=== PATIENT | male | born 1975 | race Hispanic/Latino ===

== ENCOUNTER 2017-05-27 09:22 | Emergency (ER) | payer SELFPAY ==
[2017-05-27 10:04] LABS: EOSINOPHILS % (AUTO) 1.2 % (0.0-8.0); HEMATOCRIT 47.1 % (42-54); LYMPHOCYTES % (AUTO) 23.8 % (21.0-51.0); MEAN CORPUSCULAR HEMOGLOBIN 34.2 pg (27.0-33.0); MEAN CORPUSCULAR HGB CONC 34.9 g/dL (32.0-36.0); MEAN CORPUSCULAR VOLUME 97.9 fL (79-99); MONOCYTES % (AUTO) 9.7 % (3.0-13.0); NEUTROPHILS % (AUTO) 64.3 % (40.0-77.0); PLATELET COUNT (AUTO) 353 K/uL (130-400); RED BLOOD CELL COUNT(AUTO) 4.82 MIL/uL (4.50-6.20); RED CELL DISTRIBUTION WIDTH 12.8 % (11.0-15.5); WHITE BLOOD COUNT (AUTO) 5.2 K/uL (4.8-10.8)
[2017-05-27 10:11] LABS: CREATININE 0.5 mg/dL (0.5-1.5); POTASSIUM 4.4 mmol/L (3.5-5.1)
[2017-05-27 10:18] LABS: APPEARANCE,URINE CLEAR (CLEAR); BILIRUBIN,URINE NEGATIVE (NEGATIVE); COLOR,URINE YELLOW (YELLOW); GLUCOSE, URINE (UA) NEGATIVE (NEGATIVE); KETONES,URINE 5 mg/dL (NEGATIVE); LEUKOCYTE ESTERASE ,URINE NEGATIVE (NEGATIVE); NITRATE,URINE NEGATIVE (NEGATIVE); OCCULT BLOOD,URINE NEGATIVE (NEGATIVE); PROTEIN,URINE 30 (NEGATIVE); UROBILINOGEN,URINE 0.2 mg/dL (0.2-1.0)
[2017-05-27 10:26] LABS: AMPHET/METH SCREEN,URINE NEGATIVE (NEGATIVE); BARBITURATE SCREEN, URINE NEGATIVE (NEGATIVE); BENZODIAZEPINES SCREEN,URINE NEGATIVE (NEGATIVE); CANNABINOID SCREEN,URINE NEGATIVE (NEGATIVE); COCAINE SCREEN,URINE NEGATIVE (NEGATIVE); OPIATE SCREEN,URINE NEGATIVE (NEGATIVE); PHENCYCLIDINE SCREEN,URINE NEGATIVE (NEGATIVE)
[2017-05-27 10:28] LABS: ALBUMIN 3.8 g/dL (3.5-5.0); BILIRUBIN,TOTAL 0.4 mg/dL (0.2-1.0); CREATINE KINASE MB 1.7 ng/mL (0.5-3.6); TOTAL PROTEIN, SERUM 7.8 g/dL (6.0-8.3)
[2017-05-27 10:30] LABS: BACTERIA,URINE Rare /HPF (None Seen); RBC,URINE 0-1 /HPF (0-1); SQUAMOUS EPITHELIAL CELL,UR Few /LPF (0-2); WBC,URINE None Seen /HPF (0-1)
[2017-05-27] MEDS ORDERED: HYDROXYZINE HCL 50 MG/ML VIAL IM SCH (10:30)
[2017-05-27 10:31] LABS: HYALINE CASTS, URINE 0-1 /LPF (0-1 /LPF)
== END 2017-05-27 12:49 | disposition home or self-care (01) ==
LOC: EDH 09:22
DX: F41.9 Anxiety disorder, unspecified (principal); R07.89 Other chest pain; I10 Essential (primary) hypertension; Z79.899 Other long term (current) drug therapy; Z88.6 Allergy status to analgesic agent
CPT/HCPCS: 36415; 71046; 80053; 80305; 81001; 82550; 82553; 84484 ×2; 85025; 93005 ×2; 96372; 99285; J3410

== ENCOUNTER 2017-06-02 10:32 | Inpatient (IN) | payer SELFPAY ==
[~2017-06-02] VITALS: Ht 172.7 cm; Wt 100.7 kg
[2017-06-02] VITALS (14 sets, daily range): BP systolic 140–179; BP diastolic 92–126
[2017-06-02] MEDS ORDERED: NITROGLYCERIN 0.4 MG SL TAB SL ONE (10:54)
[2017-06-02] MEDS ORDERED: ASPIRIN 325 MG TABLET ONE (10:54)
[2017-06-02] MEDS ORDERED: SODIUM CHLORIDE 0.9% 500ML 500 ML IV ONE (10:54)
[2017-06-02 11:11] LABS: BASOPHILS % (AUTO) 0.8 % (0.0-5.0); EOSINOPHILS % (AUTO) 1.1 % (0.0-8.0); LYMPHOCYTES % (AUTO) 26.9 % (21.0-51.0); MEAN CORPUSCULAR HEMOGLOBIN 35.4 pg (27.0-33.0); MEAN CORPUSCULAR HGB CONC 36.7 g/dL (32.0-36.0); MEAN CORPUSCULAR VOLUME 96.5 fL (79-99); NEUTROPHILS % (AUTO) 62.2 % (40.0-77.0); PLATELET COUNT (AUTO) 310 K/uL (130-400); RED BLOOD CELL COUNT(AUTO) 4.56 MIL/uL (4.50-6.20); RED CELL DISTRIBUTION WIDTH 12.5 % (11.0-15.5); WHITE BLOOD COUNT (AUTO) 5.3 K/uL (4.8-10.8)
[2017-06-02 11:45] LABS: CREATININE 0.6 mg/dL (0.5-1.5); POTASSIUM 3.9 mmol/L (3.5-5.1)
[2017-06-02 11:58] LABS: ALBUMIN 4.1 g/dL (3.5-5.0); BILIRUBIN,TOTAL 0.3 mg/dL (0.2-1.0); TOTAL PROTEIN, SERUM 8.2 g/dL (6.0-8.3)
[2017-06-02] MEDS ORDERED: DiphenhydrAMINE HCL 50 MG/ML VIAL ONE (12:06)
[2017-06-02] MEDS ORDERED: METOPROLOL TARTRATE 1 MG/ML 5ML VIAL IV ONE ×3 (12:07→14:03)
[2017-06-02 14:08] LABS: AMPHET/METH SCREEN,URINE NEGATIVE (NEGATIVE); BARBITURATE SCREEN, URINE NEGATIVE (NEGATIVE); BENZODIAZEPINES SCREEN,URINE NEGATIVE (NEGATIVE); CANNABINOID SCREEN,URINE NEGATIVE (NEGATIVE); COCAINE SCREEN,URINE NEGATIVE (NEGATIVE); OPIATE SCREEN,URINE NEGATIVE (NEGATIVE); PHENCYCLIDINE SCREEN,URINE NEGATIVE (NEGATIVE)
[2017-06-02] MEDS ORDERED: CLONIDINE HCL 0.1 MG TABLET ONE (14:15)
[2017-06-02] MEDS ORDERED: LORAZEPAM 2 MG/ML 1 ML VIAL ONE ×2 (14:16→17:24)
[2017-06-02] MEDS ORDERED: NICARDIPINE IN NACL, ISO-OSM 200 ML IV ONE ×2 (15:37→18:43)
[2017-06-02] MEDS ORDERED: NICARDIPINE HCL 100 MG in SODIUM CHLORIDE 0.9% 60 ML IV SCH (20:30)
[2017-06-02] MEDS ORDERED: NACL IV PRN (20:45)
[2017-06-02] MEDS ORDERED: NICARDIPINE IV PRN (20:45)
[2017-06-02] MEDS ORDERED: ISO OSM IV PRN (20:45)
[2017-06-02] MEDS ORDERED: METO100T14 PO (21:21)
[2017-06-02] MEDS ORDERED: LISI-613 PO (21:21)
[2017-06-02] MEDS ORDERED: CLONIDINE HCL 0.1 MG TABLET PO PRN (21:30)
[2017-06-02] MEDS ORDERED: ACETAMINOPHEN 325 MG TAB PO PRN (21:30)
[2017-06-02] MEDS: LISINOPRIL 10 MG TABLET PO SCH (22:18)
[2017-06-02] MEDS: METOPROLOL TARTRATE 50 MG TAB PO SCH (22:18)
[2017-06-03] VITALS (11 sets, daily range): BP systolic 110–163; BP diastolic 61–105
[2017-06-03] MEDS: LORAZEPAM 2 MG/ML 1 ML VIAL IVP PRN ×2 (03:46→08:28)
[2017-06-03] MEDS ORDERED: ONDANSETRON HCL 4 MG/2 ML VIAL IVP PRN (06:45)
[2017-06-03] MEDS ORDERED: ONDANSETRON HCL 4 MG/2 ML VIAL ONE (07:01)
[2017-06-03] MEDS: LISINOPRIL 10 MG TABLET PO SCH (08:27)
[2017-06-03] MEDS: METOPROLOL TARTRATE 50 MG TAB PO SCH (08:27)
[2017-06-03] MEDS ORDERED: ENOXAPARIN SODIUM 40 MG/0.4 ML SYRINGE SQ SCH (09:00)
[2017-06-03] MEDS ORDERED: PANTOPRAZOLE SODIUM 40 MG TABLET.DR PO SCH (09:00)
[2017-06-03 10:37] LABS: CREATINE KINASE MB 0.6 ng/mL (0.5-3.6); TROPONIN I 0.04 ng/mL (0.00-0.06)
[2017-06-03] MEDS ORDERED: NIFE30TA91 PO (10:50)
[2017-06-04] MEDS ORDERED: NIFEDIPINE ER 30 MG TAB PO SCH (09:00)
== END 2017-06-03 11:50 | disposition home or self-care (01) | DRG 305 ==
LOC: EDH 10:32 → EDHIP 10:33 → 2CH 19:45
PROVIDERS: ADMIT Family Medicine; ATTEND Family Medicine
DX: I16.1 Hypertensive emergency (principal); E66.9 Obesity, unspecified; F41.9 Anxiety disorder, unspecified; I10 Essential (primary) hypertension; Z68.33 Body mass index [BMI] 33.0-33.9, adult; Z88.8 Allergy status to other drugs, medicaments and biological substances
CPT/HCPCS: 36415; 70450; 80053; 80305; 82550; 82553; 83874; 84484; 85025; 93005; 99291; 99292; J1200; J1650; J2060; J2405; J3490; J7040

== ENCOUNTER 2018-02-08 13:03 | Emergency (ER) | payer OTHER ==
[~2018-02-08 13:03] MED LIST: LISI-613 PO; METO100T14 PO
[2018-02-08] MEDS ORDERED: MECLIZINE HCL 25 MG TABLET ONE (13:42)
[2018-02-08] MEDS ORDERED: ACETAMINOPHEN 325 MG TAB ONE (13:43)
[2018-02-08] MEDS ORDERED: METOPROLOL TARTRATE 25 MG TAB ONE (14:24)
== END 2018-02-08 14:39 | disposition home or self-care (01) ==
LOC: EDH 13:03
DX: I10 Essential (primary) hypertension (principal); Z88.5 Allergy status to narcotic agent
CPT/HCPCS: 93005

== ENCOUNTER 2018-08-25 08:20 | Emergency (ER) | payer OTHER ==
[2018-08-25] MEDS ORDERED: ASPIRIN 325 MG TABLET ONE (09:03)
[2018-08-25] MEDS ORDERED: FAMOTIDINE 20MG TAB 20 MG TAB ONE (09:03)
[2018-08-25 09:23] LABS: BASOPHILS % (AUTO) 0.7 % (0.0-5.0); EOSINOPHILS % (AUTO) 2.3 % (0.0-8.0); HEMATOCRIT 47.1 % (42-54); MEAN CORPUSCULAR HEMOGLOBIN 33.4 pg (27.0-33.0); MEAN CORPUSCULAR HGB CONC 34.2 g/dL (32.0-36.0); MEAN CORPUSCULAR VOLUME 97.8 fL (79-99); MONOCYTES % (AUTO) 11.2 % (3.0-13.0); NEUTROPHILS % (AUTO) 58.8 % (40.0-77.0); PLATELET COUNT (AUTO) 278 K/uL (130-400); RED BLOOD CELL COUNT(AUTO) 4.82 MIL/uL (4.50-6.20); RED CELL DISTRIBUTION WIDTH 12.9 % (11.0-15.5)
[2018-08-25 09:42] LABS: APPEARANCE,URINE Clear (CLEAR); BILIRUBIN,URINE Negative (NEGATIVE); COLOR,URINE Yellow (YELLOW); GLUCOSE, URINE (UA) Negative (NEGATIVE); KETONES,URINE Negative (NEGATIVE); LEUKOCYTE ESTERASE ,URINE Negative (NEGATIVE); NITRATE,URINE Negative (NEGATIVE); OCCULT BLOOD,URINE Negative (NEGATIVE); PROTEIN,URINE Negative (NEGATIVE)
[2018-08-25 09:50] LABS: AMPHET/METH SCREEN,URINE NEGATIVE (NEGATIVE); BARBITURATE SCREEN, URINE NEGATIVE (NEGATIVE); BENZODIAZEPINES SCREEN,URINE NEGATIVE (NEGATIVE); CANNABINOID SCREEN,URINE NEGATIVE (NEGATIVE); COCAINE SCREEN,URINE NEGATIVE (NEGATIVE); OPIATE SCREEN,URINE NEGATIVE (NEGATIVE); PHENCYCLIDINE SCREEN,URINE NEGATIVE (NEGATIVE)
[2018-08-25 10:02] LABS: CARBON DIOXIDE 24 mmol/L (21-32); CHLORIDE 103 mmol/L (101-111); CREATININE 0.6 mg/dL (0.5-1.5); GLOMERULAR FILTR. RATE CALC 159 mL/min (>60); GLUCOSE,RANDOM 107 mg/dL (70-105); POTASSIUM 4.9 mmol/L (3.5-5.1); SODIUM SERUM 137 mmol/L (136-145); UREA NITROGEN, BLOOD 11 mg/dL (7-18)
[2018-08-25 10:10] LABS: ALANINE AMINOTRANSFERASE 37 U/L (12-78); ALBUMIN 3.9 g/dL (3.5-5.0); ASPARTATE AMINOTRANSFERASE 12 U/L (10-37); BILIRUBIN,TOTAL 0.3 mg/dL (0.2-1.0); CREATINE KINASE, TOTAL 116 U/L (21-232); TOTAL PROTEIN, SERUM 7.8 g/dL (6.0-8.3)
[2018-08-25 10:25] LABS: ACETAMINOPHEN < 1 mcg/mL (10-29); ALCOHOL, BLOOD < 3 mg/dL (0-10); SALICYLATE < 2.8 mg/dL (2.8-20.0)
== END 2018-08-25 13:24 | disposition home or self-care (01) ==
LOC: EDH 08:20
DX: R07.89 Other chest pain (principal); F41.1 Generalized anxiety disorder; I10 Essential (primary) hypertension; R42 Dizziness and giddiness; R19.7 Diarrhea, unspecified; R10.13 Epigastric pain
CPT/HCPCS: 36415; 71045; 80053; 80305; 81003; 82550; 84484 ×2; 85025; 93005 ×2; 99285; G0480 ×2; G0481

== ENCOUNTER 2018-08-30 07:35 | Emergency (ER) | payer OTHER ==
[2018-08-30] MEDS ORDERED: MAG HYDROX/AL HYDROX/SIMETH ES 30 ML SUSP UDCUP ONE (08:33)
[2018-08-30] MEDS ORDERED: ONDANSETRON HCL 4 MG/2 ML VIAL ONE (08:33)
[2018-08-30] MEDS ORDERED: LIDOCAINE HCL 2% VISCOUS 15 ML UDCUP ONE (08:33)
[2018-08-30] MEDS ORDERED: LABETALOL 20 MG/4 ML DISP.SYRIN IV ONE (08:34)
[2018-08-30 08:36] LABS: BASOPHILS % (AUTO) 0.9 % (0.0-5.0); EOSINOPHILS % (AUTO) 2.7 % (0.0-8.0); HEMATOCRIT 48.5 % (42-54); LYMPHOCYTES % (AUTO) 17.7 % (21.0-51.0); MEAN CORPUSCULAR HEMOGLOBIN 33.2 pg (27.0-33.0); MEAN CORPUSCULAR HGB CONC 33.5 g/dL (32.0-36.0); MEAN CORPUSCULAR VOLUME 99.2 fL (79-99); MONOCYTES % (AUTO) 15.2 % (3.0-13.0); NEUTROPHILS % (AUTO) 63.5 % (40.0-77.0); NUCLEATED RED BLOOD CELLS 0.1 % (0.0-0.19); PLATELET COUNT (AUTO) 251 K/uL (130-400); RED BLOOD CELL COUNT(AUTO) 4.89 MIL/uL (4.50-6.20); RED CELL DISTRIBUTION WIDTH 13.2 % (11.0-15.5)
[2018-08-30 08:47] LABS: CREATININE 0.7 mg/dL (0.5-1.5); POTASSIUM 3.9 mmol/L (3.5-5.1)
[2018-08-30 08:51] LABS: ALBUMIN 3.7 g/dL (3.5-5.0); BILIRUBIN,TOTAL 0.4 mg/dL (0.2-1.0); TOTAL PROTEIN, SERUM 7.6 g/dL (6.0-8.3)
[2018-08-30] MEDS ORDERED: DiphenhydrAMINE HCL 50 MG/ML VIAL ONE (09:08)
[2018-08-30 09:37] LABS: BAND NEUTROPHILS % (MANUAL) 8 % (0-2); EOSINOPHILS % (MANUAL) 2 % (1-6); LYMPHOCYTES % (MANUAL) 13 % (22-44); MAN.DIFF COMMENT-IMPRESSION MANUAL DIFFERENTIAL; MONOCYTES % (MANUAL) 12 % (2-9); PLATELET MORPHOLOGY COMMENT ADEQUATE; REACTIVE LYMPHOCYTES 9 % (0-0); SEGMENTED NEUTROPHILS % 56 % (40-70)
[2018-08-30] MEDS ORDERED: LISINOPRIL 5 MG TABLET ONE (09:46)
== END 2018-08-30 10:47 | disposition home or self-care (01) ==
LOC: EDH 07:35
DX: K21.9 Gastro-esophageal reflux disease without esophagitis (principal); I10 Essential (primary) hypertension; F41.9 Anxiety disorder, unspecified; Z88.5 Allergy status to narcotic agent
CPT/HCPCS: 36415; 80053; 82550; 83690; 84484; 85025; 93005; 96372; 96374; 96375; 99285; J1200; J2405

== ENCOUNTER 2018-09-10 13:21 | Emergency (ER) | payer SELFPAY ==
[2018-09-10] MEDS ORDERED: HYDROXYZINE HCL 25 MG TABLET ONE (13:52)
== END 2018-09-10 14:05 | disposition home or self-care (01) ==
LOC: EDH 13:21
DX: F41.1 Generalized anxiety disorder (principal); I10 Essential (primary) hypertension; Z88.5 Allergy status to narcotic agent

== ENCOUNTER 2018-10-24 10:53 | Emergency (ER) | payer SELFPAY ==
[2018-10-24 11:19] LABS: EOSINOPHILS % (AUTO) 1.3 % (0.0-8.0); HEMATOCRIT 43.8 % (42-54); MEAN CORPUSCULAR HEMOGLOBIN 34.8 pg (27.0-33.0); MEAN CORPUSCULAR HGB CONC 35.3 g/dL (32.0-36.0); MEAN CORPUSCULAR VOLUME 98.5 fL (79-99); MONOCYTES % (AUTO) 13.4 % (3.0-13.0); NEUTROPHILS % (AUTO) 64.3 % (40.0-77.0); NUCLEATED RED BLOOD CELLS 0.2 % (0.0-0.19); PLATELET COUNT (AUTO) 271 K/uL (130-400); RED BLOOD CELL COUNT(AUTO) 4.45 MIL/uL (4.50-6.20); RED CELL DISTRIBUTION WIDTH 13.4 % (11.0-15.5); WHITE BLOOD COUNT (AUTO) 3.7 K/uL (4.8-10.8)
[2018-10-24] MEDS ORDERED: ACETAMINOPHEN EXTRA STRENGTH 500 MG TABLET ONE (11:21)
[2018-10-24 11:35] LABS: CARBON DIOXIDE 22 mmol/L (21-32); CHLORIDE 104 mmol/L (101-111); CREATININE 0.3 mg/dL (0.5-1.5); GLOMERULAR FILTR. RATE CALC 353 mL/min (>60); GLUCOSE,RANDOM 94 mg/dL (70-105); POTASSIUM 5.4 mmol/L (3.5-5.1); SODIUM SERUM 138 mmol/L (136-145); UREA NITROGEN, BLOOD 5 mg/dL (7-18)
[2018-10-24 11:37] LABS: ALANINE AMINOTRANSFERASE 96 U/L (12-78); ALBUMIN 3.9 g/dL (3.5-5.0); ASPARTATE AMINOTRANSFERASE 83 U/L (10-37); BILIRUBIN,DIRECT < 0.1 mg/dL (0.0-0.3); BILIRUBIN,TOTAL 0.6 mg/dL (0.2-1.0); CREATINE KINASE, TOTAL 262 U/L (21-232); LIPASE 242 U/L (114-286); TOTAL PROTEIN, SERUM 7.2 g/dL (6.0-8.3)
[2018-10-24 11:48] LABS: B-TYPE NATRIURETIC PEPTIDE < 5 pg/mL (0-100)
[2018-10-24] MEDS ORDERED: DiphenhydrAMINE HCL 50 MG/ML VIAL ONE (12:23)
[2018-10-24 14:04] LABS: APPEARANCE,URINE Cloudy (CLEAR); BILIRUBIN,URINE Negative (NEGATIVE); COLOR,URINE Yellow (YELLOW); GLUCOSE, URINE (UA) Negative (NEGATIVE); KETONES,URINE 15 mg/dL (NEGATIVE); LEUKOCYTE ESTERASE ,URINE Negative (NEGATIVE); NITRATE,URINE Negative (NEGATIVE); OCCULT BLOOD,URINE Negative (NEGATIVE); PROTEIN,URINE POS 1+ mg/dL (NEGATIVE)
[2018-10-24 14:05] LABS: AMPHET/METH SCREEN,URINE NEGATIVE (NEGATIVE); BARBITURATE SCREEN, URINE NEGATIVE (NEGATIVE); BENZODIAZEPINES SCREEN,URINE NEGATIVE (NEGATIVE); CANNABINOID SCREEN,URINE NEGATIVE (NEGATIVE); COCAINE SCREEN,URINE NEGATIVE (NEGATIVE); OPIATE SCREEN,URINE NEGATIVE (NEGATIVE); PHENCYCLIDINE SCREEN,URINE NEGATIVE (NEGATIVE)
[2018-10-24 14:09] LABS: BACTERIA,URINE Rare /HPF (None Seen); MUCUS,URINE Moderate LPF (None Seen); RBC,URINE 0-1 /HPF (0-1); SQUAMOUS EPITHELIAL CELL,UR Rare /HPF (0-2); WBC,URINE 0-1 /HPF (0-1)
[2018-10-24] MEDS ORDERED: LABETALOL HCL 5 MG/ML 20ML VIAL IV ONE (14:48)
[2018-10-24] MEDS ORDERED: NITROGLYCERIN 1GM/1 INCH PACKET TD ONE (16:00)
[2018-10-24] MEDS ORDERED: LORAZEPAM 2 MG/ML 1 ML VIAL ONE (16:40)
== END 2018-10-24 17:18 | disposition home or self-care (01) ==
LOC: EDH 10:53
DX: R07.89 Other chest pain (principal); I10 Essential (primary) hypertension; F41.9 Anxiety disorder, unspecified; F10.10 Alcohol abuse, uncomplicated; Z88.5 Allergy status to narcotic agent; Z87.891 Personal history of nicotine dependence
CPT/HCPCS: 36415; 71045; 80048; 80076; 80305; 81001; 82550; 83690; 83880; 84484 ×2; 85025; 93005 ×2; 96372; 96374; 96375; 99285; G0480; J1200; J2060; J3490

== ENCOUNTER 2019-02-11 18:03 | Emergency (ER) | payer OTHER ==
[2019-02-11 18:43] LABS: BASOPHILS % (AUTO) 0.6 % (0.0-5.0); EOSINOPHILS % (AUTO) 0.6 % (0.0-8.0); HEMATOCRIT 45.2 % (42-54); LYMPHOCYTES % (AUTO) 18.2 % (21.0-51.0); MEAN CORPUSCULAR HEMOGLOBIN 34.2 pg (27.0-33.0); MEAN CORPUSCULAR HGB CONC 34.8 g/dL (32.0-36.0); MEAN CORPUSCULAR VOLUME 98.2 fL (79-99); MONOCYTES % (AUTO) 7.2 % (3.0-13.0); NEUTROPHILS % (AUTO) 73.4 % (40.0-77.0); PLATELET COUNT (AUTO) 267 K/uL (130-400); RED BLOOD CELL COUNT(AUTO) 4.61 MIL/uL (4.50-6.20); RED CELL DISTRIBUTION WIDTH 12.9 % (11.0-15.5); WHITE BLOOD COUNT (AUTO) 8.2 K/uL (4.8-10.8)
[2019-02-11 18:56] LABS: CREATININE 0.6 mg/dL (0.5-1.5); PARTIAL THROMBOPLASTIN TIME 25.8 SEC (26.3-35.5); POTASSIUM 3.8 mmol/L (3.5-5.1); PROTHROMBIN TIME 10.5 SEC (9.6-11.6)
[2019-02-11] MEDS ORDERED: SODIUM CHLORIDE 0.9% 500ML 500 ML IV ONE (18:57)
[2019-02-11 18:58] LABS: BILIRUBIN,TOTAL 1.3 mg/dL (0.2-1.0); TOTAL PROTEIN, SERUM 7.8 g/dL (6.0-8.3)
[2019-02-11] MEDS ORDERED: ONDANSETRON HCL 4 MG/2 ML VIAL ONE (18:58)
[2019-02-11] MEDS ORDERED: KETOROLAC TROMETHAMINE 30MG/ML ONE (18:59)
[2019-02-11] MEDS ORDERED: LORAZEPAM 2 MG/ML 1 ML VIAL ONE (18:59)
[2019-02-11] MEDS ORDERED: LABETALOL 20 MG/4 ML DISP.SYRIN IV ONE (19:33)
== END 2019-02-11 21:01 | disposition home or self-care (01) ==
LOC: EDH 18:03
DX: R07.89 Other chest pain (principal); F41.0 Panic disorder [episodic paroxysmal anxiety]; I10 Essential (primary) hypertension; Z88.5 Allergy status to narcotic agent
CPT/HCPCS: 36415; 71045; 80053; 82550; 84484; 85025; 85610; 85730; 93005; 96374; 96375; 99285; J1885; J2060; J2405; J7040

== ENCOUNTER 2019-06-21 12:38 | Emergency (ER) | payer OTHER ==
[2019-06-21 12:59] LABS: BASOPHILS % (AUTO) 1.3 % (0.0-5.0); EOSINOPHILS % (AUTO) 1.8 % (0.0-8.0); HEMATOCRIT 43.1 % (42-54); LYMPHOCYTES % (AUTO) 21.3 % (21.0-51.0); MEAN CORPUSCULAR HEMOGLOBIN 34.5 pg (27.0-33.0); MEAN CORPUSCULAR VOLUME 98.4 fL (79-99); MONOCYTES % (AUTO) 14.2 % (3.0-13.0); PLATELET COUNT (AUTO) 440 K/uL (130-400); RED BLOOD CELL COUNT(AUTO) 4.38 MIL/uL (4.50-6.20); RED CELL DISTRIBUTION WIDTH 11.9 % (11.0-15.5); WHITE BLOOD COUNT (AUTO) 5.5 K/uL (4.8-10.8)
[2019-06-21 13:08] LABS: CREATININE 0.7 mg/dL (0.5-1.5); POTASSIUM 4.9 mmol/L (3.5-5.1)
[2019-06-21 13:09] LABS: INR 0.92 (0.85-1.15); PARTIAL THROMBOPLASTIN TIME 23.5 SEC (26.3-35.5)
[2019-06-21] MEDS ORDERED: ASPIRIN 325 MG TABLET ONE (13:20)
[2019-06-21 13:22] LABS: ALBUMIN 3.8 g/dL (3.5-5.0); BILIRUBIN,TOTAL 0.3 mg/dL (0.2-1.0); TOTAL PROTEIN, SERUM 7.7 g/dL (6.0-8.3)
[2019-06-21 13:57] LABS: AMPHET/METH SCREEN,URINE NEGATIVE (NEGATIVE); BARBITURATE SCREEN, URINE NEGATIVE (NEGATIVE); BENZODIAZEPINES SCREEN,URINE NEGATIVE (NEGATIVE); CANNABINOID SCREEN,URINE NEGATIVE (NEGATIVE); COCAINE SCREEN,URINE NEGATIVE (NEGATIVE); OPIATE SCREEN,URINE NEGATIVE (NEGATIVE); PHENCYCLIDINE SCREEN,URINE NEGATIVE (NEGATIVE)
[2019-06-21] MEDS ORDERED: ACETAMINOPHEN 325 MG TAB ONE (15:10)
== END 2019-06-21 16:22 | disposition home or self-care (01) ==
LOC: EDH 12:38
DX: R07.89 Other chest pain (principal); I10 Essential (primary) hypertension; F41.9 Anxiety disorder, unspecified; Z88.5 Allergy status to narcotic agent
CPT/HCPCS: 36415; 71045; 80053; 80305; 82550; 84484; 85025; 85610; 85730; 93005

== ENCOUNTER 2020-02-05 13:12 | Emergency (ER) | payer OTHER ==
[2020-02-05] MEDS ORDERED: LORAZEPAM 2 MG/ML 1 ML VIAL ONE (13:41)
[2020-02-05] MEDS ORDERED: ACETAMINOPHEN 325 MG TAB ONE (13:41)
[2020-02-05 13:48] LABS: BASOPHILS % (AUTO) 0.9 % (0.0-5.0); EOSINOPHILS % (AUTO) 1.8 % (0.0-8.0); LYMPHOCYTES % (AUTO) 18.1 % (21.0-51.0); MEAN CORPUSCULAR HEMOGLOBIN 34.1 pg (27.0-33.0); MEAN CORPUSCULAR HGB CONC 35.3 g/dL (32.0-36.0); MEAN CORPUSCULAR VOLUME 96.6 fL (79-99); MONOCYTES % (AUTO) 16.3 % (3.0-13.0); NEUTROPHILS % (AUTO) 62.6 % (40.0-77.0); PLATELET COUNT (AUTO) 85 K/uL (130-400); RED BLOOD CELL COUNT(AUTO) 4.14 MIL/uL (4.50-6.20); RED CELL DISTRIBUTION WIDTH 12.9 % (11.0-15.5); WHITE BLOOD COUNT (AUTO) 3.3 K/uL (4.8-10.8)
[2020-02-05 13:55] LABS: CREATININE 0.6 mg/dL (0.5-1.5); POTASSIUM 4.2 mmol/L (3.5-5.1)
[2020-02-05 14:11] LABS: INR 0.91 (0.85-1.15); PROTHROMBIN TIME 9.9 SEC (9.6-11.6)
[2020-02-05] MEDS ORDERED: IOHEXOL 350 MG/ML 100ML INFUS..BTL IV ONE (14:11)
== END 2020-02-05 15:14 | disposition home or self-care (01) ==
LOC: EDH 13:12
DX: D69.6 Thrombocytopenia, unspecified (principal); R10.9 Unspecified abdominal pain; F41.9 Anxiety disorder, unspecified; I10 Essential (primary) hypertension; Z88.5 Allergy status to narcotic agent; W11.XXXA Fall on and from ladder, initial encounter; Y93.89 Activity, other specified; Y92.89 Other specified places as the place of occurrence of the external cause; Y99.8 Other external cause status
CPT/HCPCS: 36415; 70450; 71260; 73060; 74177; 80048; 85025; 85610; 85730; 96361; 96374; 99285; J2060; Q9967

== ENCOUNTER 2020-06-24 22:54 | Emergency (ER) | payer OTHER ==
[~2020-06-24 22:54] MED LIST changes: -LISI-613 PO; +LISI20TA24 PO
[2020-06-25] MEDS ORDERED: MAG HYDROX/AL HYDROX/SIMETH ES 30 ML SUSP UDCUP ONE (00:45)
[2020-06-25] MEDS ORDERED: LIDOCAINE HCL 2% VISCOUS 15 ML UDCUP ONE (00:45)
[2020-06-25] MEDS ORDERED: CEFAZOLIN SODIUM 1 GM VIAL ONE (00:45)
[2020-06-25] MEDS ORDERED: TETANUS/DIPHTHERIA TOXOID [ADULT] 0.5 ML VIAL IM ONE (00:46)
[2020-06-25] MEDS ORDERED: SODIUM CHLORIDE 0.9% 1000ML 1,000 ML IV ONE (00:46)
[2020-06-25] MEDS ORDERED: SODIUM CHLORIDE 0.9% 100 ML IV ONE (00:46)
[2020-06-25 00:48] LABS: BASOPHILS % (AUTO) 0.7 % (0.0-5.0); EOSINOPHILS % (AUTO) 1.3 % (0.0-8.0); HEMATOCRIT 43.6 % (42-54); LYMPHOCYTES % (AUTO) 20.8 % (21.0-51.0); MEAN CORPUSCULAR HEMOGLOBIN 34.3 pg (27.0-33.0); MEAN CORPUSCULAR HGB CONC 35.1 g/dL (32.0-36.0); MEAN CORPUSCULAR VOLUME 97.8 fL (79-99); PLATELET COUNT (AUTO) 123 K/uL (130-400); RED BLOOD CELL COUNT(AUTO) 4.46 MIL/uL (4.50-6.20); WHITE BLOOD COUNT (AUTO) 4.5 K/uL (4.8-10.8)
[2020-06-25 00:55] LABS: APPEARANCE,URINE Clear (CLEAR); BILIRUBIN,URINE Negative (NEGATIVE); COLOR,URINE Yellow (YELLOW); GLUCOSE, URINE (UA) Negative (NEGATIVE); KETONES,URINE Trace mg/dL (NEGATIVE); LEUKOCYTE ESTERASE ,URINE Trace (NEGATIVE); NITRATE,URINE Negative (NEGATIVE); OCCULT BLOOD,URINE Negative (NEGATIVE); PROTEIN,URINE POS 1+ mg/dL (NEGATIVE)
[2020-06-25 00:57] LABS: CREATININE 0.7 mg/dL (0.5-1.5)
[2020-06-25 01:02] LABS: ALBUMIN 4.1 g/dL (3.5-5.0); BILIRUBIN,TOTAL 0.4 mg/dL (0.2-1.0); TOTAL PROTEIN, SERUM 8.1 g/dL (6.0-8.3)
[2020-06-25 01:24] LABS: BACTERIA,URINE Rare /HPF (None Seen); MUCUS,URINE Rare LPF (None Seen); RBC,URINE 0-1 /HPF (0-1); SQUAMOUS EPITHELIAL CELL,UR 0-2 /HPF (0-2)
[2020-06-25 01:29] LABS: PLATELET MORPHOLOGY PLT CLUMPS PRESENT
== END 2020-06-25 03:48 | disposition home or self-care (01) ==
LOC: EDH 22:54
DX: I73.9 Peripheral vascular disease, unspecified (principal); E11.21 Type 2 diabetes mellitus with diabetic nephropathy; E11.621 Type 2 diabetes mellitus with foot ulcer; Z20.822 Contact with and (suspected) exposure to COVID-19; F41.9 Anxiety disorder, unspecified; I10 Essential (primary) hypertension
CPT/HCPCS: 36415; 80053; 81001; 85025; 87040; 87426; 90471; 90714; 96374; 99283; J0690; J7030; U0003

== ENCOUNTER 2020-08-26 20:40 | Emergency (ER) | payer OTHER ==
[2020-08-26] MEDS ORDERED: DIAZEPAM 5 MG/ML 2 ML SYG ONE (20:55)
[2020-08-26] MEDS ORDERED: KETOROLAC TROMETHAMINE 30MG/ML ONE (20:55)
[2020-08-26 21:03] LABS: BASOPHILS % (AUTO) 0.7 % (0.0-5.0); EOSINOPHILS % (AUTO) 2.5 % (0.0-8.0); HEMATOCRIT 41.9 % (42-54); LYMPHOCYTES % (AUTO) 23.7 % (21.0-51.0); MEAN CORPUSCULAR HGB CONC 34.6 g/dL (32.0-36.0); MEAN CORPUSCULAR VOLUME 98.4 fL (79-99); MONOCYTES % (AUTO) 22.8 % (3.0-13.0); NEUTROPHILS % (AUTO) 49.9 % (40.0-77.0); PLATELET COUNT (AUTO) 131 K/uL (130-400); RED BLOOD CELL COUNT(AUTO) 4.26 MIL/uL (4.50-6.20); RED CELL DISTRIBUTION WIDTH 14.1 % (11.0-15.5); WHITE BLOOD COUNT (AUTO) 4.5 K/uL (4.8-10.8)
[2020-08-26 21:16] LABS: CREATININE 0.8 mg/dL (0.5-1.5); POTASSIUM 3.7 mmol/L (3.5-5.1)
[2020-08-26 21:20] LABS: ALBUMIN 3.8 g/dL (3.5-5.0); BILIRUBIN,TOTAL 0.5 mg/dL (0.2-1.0); TOTAL PROTEIN, SERUM 7.7 g/dL (6.0-8.3)
[2020-08-26] MEDS ORDERED: MAG HYDROX/AL HYDROX/SIMETH ES 30 ML SUSP UDCUP ONE (22:14)
[2020-08-26] MEDS ORDERED: LIDOCAINE HCL 2% VISCOUS 15 ML UDCUP ONE (22:14)
[2020-08-26] MEDS ORDERED: DIAZEPAM 5 MG TABLET ONE (22:19)
[2020-08-26 22:40] LABS: APPEARANCE,URINE Clear (CLEAR); BILIRUBIN,URINE Moderate (NEGATIVE); COLOR,URINE Dark Yellow (YELLOW); GLUCOSE, URINE (UA) Negative (NEGATIVE); KETONES,URINE 15 mg/dL (NEGATIVE); LEUKOCYTE ESTERASE ,URINE Negative (NEGATIVE); NITRATE,URINE Negative (NEGATIVE); OCCULT BLOOD,URINE Negative (NEGATIVE); PH,URINE 5.5 (5.0-8.0); PROTEIN,URINE POS 1+ mg/dL (NEGATIVE)
[2020-08-26 22:47] LABS: BACTERIA,URINE None Seen /HPF (None Seen); RBC,URINE None Seen /HPF (0-1); SQUAMOUS EPITHELIAL CELL,UR Rare /HPF (0-2); WBC,URINE None Seen /HPF (0-1)
== END 2020-08-27 00:15 | disposition home or self-care (01) ==
LOC: EDH 20:40
DX: F41.8 Other specified anxiety disorders (principal); R10.9 Unspecified abdominal pain; R11.2 Nausea with vomiting, unspecified; R19.7 Diarrhea, unspecified; R42 Dizziness and giddiness; R61 Generalized hyperhidrosis; I10 Essential (primary) hypertension; E78.00 Pure hypercholesterolemia, unspecified; Z95.0 Presence of cardiac pacemaker; Z88.5 Allergy status to narcotic agent; Z20.822 Contact with and (suspected) exposure to COVID-19
CPT/HCPCS: 36415; 80053; 81001; 83605; 83690; 84484; 85025; 87426; 87635; 93005; 96374; 96375; 99284; C9803; J1885; J3360

== ENCOUNTER 2020-10-15 22:33 | Emergency (ER) | payer OTHER ==
[~2020-10-15] VITALS: Ht 172.7 cm; Wt 99.8 kg
[2020-10-15] MEDS ORDERED: 0.9%NACL 1000ML 1,000 ML IV ONE ×3 (22:38→23:30)
[2020-10-15 23:00] VITALS: BP 129/93
[2020-10-15 23:20] LABS: BASOPHILS % (AUTO) 0.9 % (0.0-5.0); EOSINOPHILS % (AUTO) 1.3 % (0.0-8.0); LYMPHOCYTES % (AUTO) 21.7 % (21.0-51.0); MEAN CORPUSCULAR HEMOGLOBIN 34.2 pg (27.0-33.0); MEAN CORPUSCULAR HGB CONC 35.6 g/dL (32.0-36.0); MONOCYTES % (AUTO) 16.3 % (3.0-13.0); NEUTROPHILS % (AUTO) 59.4 % (40.0-77.0); PLATELET COUNT (AUTO) 106 K/uL (130-400); RED BLOOD CELL COUNT(AUTO) 4.48 MIL/uL (4.50-6.20); RED CELL DISTRIBUTION WIDTH 13.4 % (11.0-15.5); WHITE BLOOD COUNT (AUTO) 4.5 K/uL (4.8-10.8)
[2020-10-15 23:26] LABS: INR 1.01 (0.85-1.15)
[2020-10-15 23:29] LABS: CREATININE 0.6 mg/dL (0.5-1.5); POTASSIUM 3.3 mmol/L (3.5-5.1)
[2020-10-15] MEDS ORDERED: FAMOTIDINE 20MG VIAL IV ONE (23:30)
[2020-10-15] MEDS ORDERED: DiphenhydrAMINE HCL 50 MG/ML VIAL IV ONE (23:30)
[2020-10-15] MEDS ORDERED: ONDANSETRON 4MG INJ IVP ONE (23:30)
[2020-10-15] MEDS ORDERED: PANTOPRAZOLE 40 MG/VIAL IVP SCH (23:30)
[2020-10-15] MEDS ORDERED: METOCLOPRAMIDE 10 MG/2 ML VIAL IVP ONE (23:30)
[2020-10-15 23:42] LABS: ALBUMIN 3.8 g/dL (3.5-5.0); BILIRUBIN,TOTAL 0.7 mg/dL (0.2-1.0); MAGNESIUM 1.8 mg/dL (1.80-2.40); TOTAL PROTEIN, SERUM 7.8 g/dL (6.0-8.3)
[2020-10-15 23:50] VITALS: BP 142/97
[2020-10-16] VITALS (7 sets, daily range): BP systolic 148–190; BP diastolic 94–113
[2020-10-16] MEDS ORDERED: MAG/ALUM/SIMETH 30 ML UDCUP PO ONE (01:00)
[2020-10-16] MEDS ORDERED: LIDOCAINE HCL 2% VISCOUS 15 ML UDCUP PO ONE (01:00)
[2020-10-16 02:44] LABS: AMPHET/METH SCREEN,URINE NEGATIVE (NEGATIVE); BARBITURATE SCREEN, URINE NEGATIVE (NEGATIVE); BENZODIAZEPINES SCREEN,URINE NEGATIVE (NEGATIVE); CANNABINOID SCREEN,URINE NEGATIVE (NEGATIVE); COCAINE SCREEN,URINE NEGATIVE (NEGATIVE); OPIATE SCREEN,URINE NEGATIVE (NEGATIVE); PHENCYCLIDINE SCREEN,URINE NEGATIVE (NEGATIVE)
[2020-10-16] MEDS ORDERED: HALOPERIDOL LACTATE 5 MG/ML VIAL ONE (03:47)
[2020-10-16] MEDS ORDERED: HALOPERIDOL LACTATE 5 MG/ML VIAL IV SCH (04:00)
[2020-10-16] MEDS ORDERED: IOHEXOL-350 75 ML VIAL IV ONE (04:00)
[2020-10-16] MEDS ORDERED: KETOROLAC 30MG VIAL (30MG/ML) ONE (07:04)
[2020-10-16] MEDS ORDERED: HYDR-3421 PO (07:28)
[2020-10-16] MEDS ORDERED: PANT40TA54 PO (07:28)
[2020-10-16] MEDS ORDERED: ONDA4TAB10 PO (07:28)
[2020-10-16] MEDS ORDERED: DICY20TA2 PO (07:28)
[2020-10-16] MEDS ORDERED: ONDANSETRON 4MG INJ ONE (07:37)
[2020-10-16] MEDS ORDERED: KETOROLAC 30MG VIAL (30MG/ML) IV SCH (07:41)
[2020-10-16] MEDS ORDERED: ONDANSETRON 4MG INJ IVP SCH (08:00)
== END 2020-10-16 08:23 | disposition home or self-care (01) ==
LOC: EDH 22:37
DX: E86.0 Dehydration (principal); F41.9 Anxiety disorder, unspecified; R10.13 Epigastric pain; R07.89 Other chest pain; R19.7 Diarrhea, unspecified; R11.2 Nausea with vomiting, unspecified; I10 Essential (primary) hypertension; I25.10 Atherosclerotic heart disease of native coronary artery without angina pectoris; Z95.0 Presence of cardiac pacemaker; Z98.890 Other specified postprocedural states; Z88.5 Allergy status to narcotic agent; Z79.899 Other long term (current) drug therapy
CPT/HCPCS: 36415; 71045; 74177; 80053; 80305; 82550; 83690; 83735; 84484 ×2; 85025; 85610; 93005; 96361; 96374; 96375 ×2; 96376; 99285; C9113; J1200; J1630; J1885; J2405 ×2; J2765; J3490; J7030; Q9967

== ENCOUNTER 2021-05-09 16:08 | Emergency (ER) | payer OTHER ==
[~2021-05-09] VITALS: Ht 172.7 cm; Wt 99.8 kg
[~2021-05-09 16:08] MED LIST changes: +DICY20TA2 PO; +HYDR-3421 PO; +ONDA4TAB10 PO; +PANT40TA54 PO
[2021-05-09 16:30] LABS: BASOPHILS % (AUTO) 0.4 % (0.0-5.0); EOSINOPHILS % (AUTO) 2.1 % (0.0-8.0); LYMPHOCYTES % (AUTO) 26.3 % (21.0-51.0); MEAN CORPUSCULAR HEMOGLOBIN 32.9 pg (27.0-33.0); MEAN CORPUSCULAR HGB CONC 34.2 g/dL (32.0-36.0); MEAN CORPUSCULAR VOLUME 96.2 fL (79-99); MONOCYTES % (AUTO) 20.1 % (3.0-13.0); NEUTROPHILS % (AUTO) 50.7 % (40.0-77.0); PLATELET COUNT (AUTO) 153 K/uL (130-400); RED BLOOD CELL COUNT(AUTO) 4.68 MIL/uL (4.50-6.20); RED CELL DISTRIBUTION WIDTH 12.6 % (11.0-15.5); WHITE BLOOD COUNT (AUTO) 4.7 K/uL (4.8-10.8)
[2021-05-09 16:40] LABS: CREATININE 0.6 mg/dL (0.5-1.5); POTASSIUM 3.3 mmol/L (3.5-5.1)
[2021-05-09 16:52] LABS: BILIRUBIN,TOTAL 0.6 mg/dL (0.2-1.0); TOTAL PROTEIN, SERUM 7.9 g/dL (6.0-8.3)
[2021-05-09 22:49] LABS: APPEARANCE,URINE Clear (CLEAR); BILIRUBIN,URINE Negative (NEGATIVE); COLOR,URINE Dark Yellow (YELLOW); GLUCOSE, URINE (UA) Negative (NEGATIVE); KETONES,URINE 15 mg/dL (NEGATIVE); LEUKOCYTE ESTERASE ,URINE Negative (NEGATIVE); NITRATE,URINE Negative (NEGATIVE); OCCULT BLOOD,URINE Negative (NEGATIVE); PROTEIN,URINE Trace mg/dL (NEGATIVE)
[2021-05-09 22:50] VITALS: BP 131/99
[2021-05-09] MEDS ORDERED: ONDANSETRON ODT 4MG TAB SL ONE (23:00)
[2021-05-09] MEDS ORDERED: MECLIZINE HCL 25 MG TABLET PO ONE (23:00)
[2021-05-09] MEDS ORDERED: MAG/ALUM/SIMETH 30 ML UDCUP PO ONE (23:00)
[2021-05-09] MEDS ORDERED: FAMOTIDINE 20MG TAB PO ONE (23:00)
[2021-05-09] MEDS ORDERED: ACETAMINOPHEN 500 MG TABLET PO ONE (23:00)
[2021-05-09] MEDS ORDERED: POTASSIUM BICARB/CIT AC 25 MEQ TABLET.EFF PO ONE ×2 (23:00)
[2021-05-09 23:01] LABS: BACTERIA,URINE None Seen /HPF (None Seen); RBC,URINE None Seen /HPF (0-1); SQUAMOUS EPITHELIAL CELL,UR Rare /HPF (0-2); WBC,URINE 0-1 /HPF (0-1)
[2021-05-09] MEDS ORDERED: DICY20TA2 PO (23:22)
[2021-05-09] MEDS ORDERED: FAMO-136 PO (23:22)
== END 2021-05-09 23:55 | disposition home or self-care (01) ==
LOC: EDH 16:08
DX: K29.70 Gastritis, unspecified, without bleeding (principal); R51.9 Headache, unspecified; F41.9 Anxiety disorder, unspecified; Z20.822 Contact with and (suspected) exposure to COVID-19; I10 Essential (primary) hypertension; I25.10 Atherosclerotic heart disease of native coronary artery without angina pectoris; E66.9 Obesity, unspecified; Z88.5 Allergy status to narcotic agent; Z95.5 Presence of coronary angioplasty implant and graft; Z68.33 Body mass index [BMI] 33.0-33.9, adult
CPT/HCPCS: 36415; 71045; 80053; 81001; 83605; 83690; 84484; 85025; 87635; 99284; C9803

== ENCOUNTER 2022-05-02 23:50 | Emergency (ER) | payer OTHER ==
[~2022-05-02 23:50] MED LIST changes: +FAMO-136 PO
[2022-05-03] MEDS ORDERED: HYDRALAZINE 20MG/ML VIAL IV ONE (00:30)
[2022-05-03] MEDS ORDERED: NITROGLYCERIN 0.4 MG SL TAB SL PRN (00:30)
[2022-05-03 01:01] LABS: BASOPHILS % (AUTO) 0.5 % (0.0-5.0); EOSINOPHILS % (AUTO) 3.6 % (0.0-8.0); HEMATOCRIT 44.9 % (42-54); LYMPHOCYTES % (AUTO) 24.7 % (21.0-51.0); MEAN CORPUSCULAR HEMOGLOBIN 32.9 pg (27.0-33.0); MEAN CORPUSCULAR VOLUME 94.1 fL (79-99); MONOCYTES % (AUTO) 12.3 % (3.0-13.0); NEUTROPHILS % (AUTO) 58.6 % (40.0-77.0); PLATELET COUNT (AUTO) 144 K/uL (130-400); RED BLOOD CELL COUNT(AUTO) 4.77 MIL/uL (4.50-6.20); RED CELL DISTRIBUTION WIDTH 12.2 % (11.0-15.5); WHITE BLOOD COUNT (AUTO) 5.8 K/uL (4.8-10.8)
[2022-05-03 01:11] LABS: PROTHROMBIN TIME 10.9 SEC (9.6-11.6)
[2022-05-03 01:12] LABS: PARTIAL THROMBOPLASTIN TIME 26.3 SEC (26.3-35.5)
[2022-05-03 01:36] LABS: B-TYPE NATRIURETIC PEPTIDE 13 pg/mL (0-100)
[2022-05-03 01:38] LABS: APPEARANCE,URINE CLEAR (CLEAR); BILIRUBIN,URINE NEGATIVE (NEGATIVE); COLOR,URINE LIGHT-YELLOW (YELLOW); GLUCOSE, URINE (UA) NEGATIVE (NEGATIVE); KETONES,URINE 20 mg/dL (NEGATIVE); LEUKOCYTE ESTERASE ,URINE 25 Leu/uL (NEGATIVE); NITRATE,URINE NEGATIVE (NEGATIVE); PROTEIN,URINE 30 mg/dL (NEGATIVE); UROBILINOGEN,URINE 0.2 mg/dL (0.2-1.0)
[2022-05-03 01:44] LABS: MUCUS,URINE RARE LPF (None Seen)
[2022-05-03 01:48] LABS: CREATININE 0.7 mg/dL (0.5-1.5); POTASSIUM 3.4 mmol/L (3.5-5.1)
[2022-05-03 01:56] LABS: AMPHET/METH SCREEN,URINE NEGATIVE (NEGATIVE); BARBITURATE SCREEN, URINE NEGATIVE (NEGATIVE); BENZODIAZEPINES SCREEN,URINE NEGATIVE (NEGATIVE); CANNABINOID SCREEN,URINE NEGATIVE (NEGATIVE); COCAINE SCREEN,URINE NEGATIVE (NEGATIVE); OPIATE SCREEN,URINE NEGATIVE (NEGATIVE); PHENCYCLIDINE SCREEN,URINE NEGATIVE (NEGATIVE)
[2022-05-03] MEDS ORDERED: IOHEXOL 350 MG/ML 100ML INFUS..BTL IV ONE (02:04)
[2022-05-03] MEDS ORDERED: CEFTRIAXONE 1G VIAL ONE (02:55)
[2022-05-03] MEDS ORDERED: ACETAMINOPHEN 325 MG TAB PO ONE (03:00)
[2022-05-03] MEDS ORDERED: CEFTRIAXONE 1G VIAL IVP ONE (03:00)
[2022-05-03] MEDS ORDERED: MAG/ALUM/SIMETH 30 ML UDCUP PO ONE (04:00)
[2022-05-03] MEDS ORDERED: LIDOCAINE HCL 2% VISCOUS 15 ML UDCUP PO ONE (04:00)
[2022-05-03] MEDS ORDERED: CEFU500T67 PO (04:28)
[2022-05-03] MEDS ORDERED: OMEP40CA21 PO (04:28)
[2022-05-03 04:30] VITALS: BP 118/79
[2022-05-04] MEDS ORDERED: IBUP-1493 PO (23:13)
== END 2022-05-03 04:47 | disposition home or self-care (01) ==
LOC: EDH 23:50
DX: R07.9 Chest pain, unspecified (principal); I10 Essential (primary) hypertension; R51.9 Headache, unspecified; N39.0 Urinary tract infection, site not specified; F41.9 Anxiety disorder, unspecified; Z88.8 Allergy status to other drugs, medicaments and biological substances; Z79.899 Other long term (current) drug therapy
CPT/HCPCS: 99285; 82550; 84484 ×2; 80053; 83880; 80305; 83690; 85025; 85378; 85610; 85730; 87088; 36415; 81001; 70450; 96374; 71045; 96375; 71275; 93005 ×2; J0360; J0696; Q9967

== ENCOUNTER 2022-05-04 18:31 | Emergency (ER) | payer OTHER ==
[~2022-05-04] VITALS: Ht 172.7 cm; Wt 99.8 kg
[~2022-05-04 18:31] MED LIST changes: +CEFU500T67 PO; +OMEP40CA21 PO
[2022-05-04 19:28] LABS: APPEARANCE,URINE CLEAR (CLEAR); BILIRUBIN,URINE NEGATIVE (NEGATIVE); COLOR,URINE YELLOW (YELLOW); GLUCOSE, URINE (UA) NEGATIVE (NEGATIVE); KETONES,URINE NEGATIVE (NEGATIVE); LEUKOCYTE ESTERASE ,URINE NEGATIVE Leu/uL (NEGATIVE); NITRATE,URINE NEGATIVE (NEGATIVE); OCCULT BLOOD,URINE NEGATIVE (NEGATIVE); PH,URINE 6.5 (5.0-8.0); PROTEIN,URINE 20 mg/dL (NEGATIVE)
[2022-05-04 19:30] LABS: BASOPHILS % (AUTO) 0.2 % (0.0-5.0); EOSINOPHILS % (AUTO) 2.8 % (0.0-8.0); HEMATOCRIT 41.6 % (42-54); LYMPHOCYTES % (AUTO) 27.8 % (21.0-51.0); MEAN CORPUSCULAR HEMOGLOBIN 33.5 pg (27.0-33.0); MEAN CORPUSCULAR HGB CONC 34.6 g/dL (32.0-36.0); MEAN CORPUSCULAR VOLUME 96.7 fL (79-99); MONOCYTES % (AUTO) 19.5 % (3.0-13.0); NEUTROPHILS % (AUTO) 49.5 % (40.0-77.0); PLATELET COUNT (AUTO) 153 K/uL (130-400); RED CELL DISTRIBUTION WIDTH 12.6 % (11.0-15.5); WHITE BLOOD COUNT (AUTO) 4.4 K/uL (4.8-10.8)
[2022-05-04] MEDS ORDERED: METOCLOPRAMIDE 10 MG/2 ML VIAL IVP ONE (19:30)
[2022-05-04] MEDS ORDERED: DiphenhydrAMINE HCL 50 MG/ML VIAL IV ONE (19:30)
[2022-05-04] MEDS ORDERED: KETOROLAC 30MG VIAL (30MG/ML) IVP ONE (19:30)
[2022-05-04 19:38] LABS: BACTERIA,URINE RARE /HPF (None Seen); MUCUS,URINE RARE LPF (None Seen); RBC,URINE 0-1 /HPF (0-1)
[2022-05-04 19:38] LABS: CREATININE 0.8 mg/dL (0.5-1.5); POTASSIUM 3.8 mmol/L (3.5-5.1)
[2022-05-04 19:47] LABS: ALBUMIN 3.7 g/dL (3.5-5.0); TOTAL PROTEIN, SERUM 7.5 g/dL (6.0-8.3)
[2022-05-04] MEDS ORDERED: DiphenhydrAMINE HCL 50 MG/ML VIAL ONE (19:53)
[2022-05-04] MEDS ORDERED: METOCLOPRAMIDE 10 MG/2 ML VIAL ONE (19:53)
[2022-05-04] MEDS ORDERED: KETOROLAC 30MG VIAL (30MG/ML) ONE (19:53)
[2022-05-04 20:55] LABS: AMPHET/METH SCREEN,URINE NEGATIVE (NEGATIVE); BARBITURATE SCREEN, URINE NEGATIVE (NEGATIVE); BENZODIAZEPINES SCREEN,URINE NEGATIVE (NEGATIVE); CANNABINOID SCREEN,URINE NEGATIVE (NEGATIVE); COCAINE SCREEN,URINE NEGATIVE (NEGATIVE); OPIATE SCREEN,URINE NEGATIVE (NEGATIVE); PHENCYCLIDINE SCREEN,URINE NEGATIVE (NEGATIVE)
[2022-05-04] MEDS ORDERED: IBUP-1493 PO (23:13)
[2022-05-05] MEDS ORDERED: METO50TA18 PO (00:14)
[2022-05-05] MEDS ORDERED: METO50 PO (00:16)
[2022-05-05] MEDS ORDERED: LISI20TA24 PO (00:16)
[2022-05-05 00:17] VITALS: BP 136/79
== END 2022-05-05 00:26 | disposition home or self-care (01) ==
LOC: EDH 18:31
DX: G43.109 Migraine with aura, not intractable, without status migrainosus (principal); I10 Essential (primary) hypertension; F41.9 Anxiety disorder, unspecified; Z88.5 Allergy status to narcotic agent; Z95.5 Presence of coronary angioplasty implant and graft; Z79.899 Other long term (current) drug therapy; Z98.890 Other specified postprocedural states
CPT/HCPCS: 99285; 70551; 96374; 70450; 96375; 84484; 80053; 80305; 85025; 82948; 36415; 93005; 81001; J1200; J1885; J2765

== ENCOUNTER 2022-07-20 10:55 | Emergency (ER) | payer OTHER ==
[~2022-07-20] VITALS: Ht 172.7 cm; Wt 99.8 kg
[~2022-07-20 10:55] MED LIST changes: +IBUP-1493 PO; +METO50 PO; +METO50TA18 PO
[2022-07-20] MEDS ORDERED: LACTATED RINGERS 1000ML 1,000 ML IV ONE (11:30)
[2022-07-20 11:37] LABS: BASOPHILS % (AUTO) 0.6 % (0.0-5.0); EOSINOPHILS % (AUTO) 0.4 % (0.0-8.0); HEMATOCRIT 44.7 % (42-54); LYMPHOCYTES % (AUTO) 19.3 % (21.0-51.0); MEAN CORPUSCULAR HEMOGLOBIN 32.6 pg (27.0-33.0); MEAN CORPUSCULAR HGB CONC 35.3 g/dL (32.0-36.0); MEAN CORPUSCULAR VOLUME 92.4 fL (79-99); MONOCYTES % (AUTO) 7.5 % (3.0-13.0); PLATELET COUNT (AUTO) 256 K/uL (130-400); RED BLOOD CELL COUNT(AUTO) 4.84 MIL/uL (4.50-6.20); RED CELL DISTRIBUTION WIDTH 12.7 % (11.0-15.5); WHITE BLOOD COUNT (AUTO) 8.6 K/uL (4.8-10.8)
[2022-07-20 11:47] LABS: CREATININE 0.6 mg/dL (0.5-1.5); INR 0.96 (0.85-1.15); POTASSIUM 3.6 mmol/L (3.5-5.1); PROTHROMBIN TIME 10.5 SEC (9.6-11.6)
[2022-07-20 11:53] LABS: ALBUMIN 4.2 g/dL (3.5-5.0); TOTAL PROTEIN, SERUM 8.2 g/dL (6.0-8.3)
[2022-07-20 12:22] LABS: AMPHET/METH SCREEN,URINE NEGATIVE (NEGATIVE); BARBITURATE SCREEN, URINE NEGATIVE (NEGATIVE); BENZODIAZEPINES SCREEN,URINE NEGATIVE (NEGATIVE); CANNABINOID SCREEN,URINE NEGATIVE (NEGATIVE); COCAINE SCREEN,URINE NEGATIVE (NEGATIVE); OPIATE SCREEN,URINE NEGATIVE (NEGATIVE); PHENCYCLIDINE SCREEN,URINE NEGATIVE (NEGATIVE)
[2022-07-20] MEDS ORDERED: MAG/ALUM/SIMETH 30 ML UDCUP PO ONE (12:30)
[2022-07-20] MEDS ORDERED: LIDOCAINE HCL 2% VISCOUS 15 ML UDCUP PO ONE (12:30)
[2022-07-20] MEDS ORDERED: HYDROXYZINE 50MG VIAL 50 MG/ML VIAL IM SCH (13:00)
[2022-07-20] MEDS ORDERED: PANTOPRAZOLE 40 MG/VIAL IVP ONE (13:30)
[2022-07-20] MEDS ORDERED: CLONIDINE HCL 0.1 MG TABLET PO ONE (13:30)
[2022-07-20] MEDS ORDERED: ACETAMINOPHEN 500 MG TABLET ONE (15:58)
[2022-07-20] MEDS ORDERED: NIFEDIPINE 10 MG CAP ONE (15:59)
[2022-07-20 16:28] VITALS: BP 146/93
== END 2022-07-20 17:11 | disposition home or self-care (01) ==
LOC: EDH 10:55
DX: A00.9 Cholera, unspecified (principal); K29.70 Gastritis, unspecified, without bleeding; F41.9 Anxiety disorder, unspecified; I10 Essential (primary) hypertension; E78.00 Pure hypercholesterolemia, unspecified; Z79.899 Other long term (current) drug therapy; Z87.19 Personal history of other diseases of the digestive system; Z95.5 Presence of coronary angioplasty implant and graft; Z98.890 Other specified postprocedural states; Z88.5 Allergy status to narcotic agent
CPT/HCPCS: 99285; 96374; 71045; 96361; 84478; 84484; 80053; 80305; 83690; 85025; 85610; 36415; 93005; 96372; J7120; J3410; C9113

== ENCOUNTER 2022-07-21 19:26 | Inpatient (IN) | payer OTHER ==
[~2022-07-21] VITALS: Ht 172.7 cm; Wt 100.2 kg
[2022-07-21 20:09] LABS: BASOPHILS % (AUTO) 0.7 % (0.0-5.0); HEMATOCRIT 44.7 % (42-54); LYMPHOCYTES % (AUTO) 26.4 % (21.0-51.0); MEAN CORPUSCULAR HEMOGLOBIN 33.3 pg (27.0-33.0); MEAN CORPUSCULAR HGB CONC 35.3 g/dL (32.0-36.0); MEAN CORPUSCULAR VOLUME 94.1 fL (79-99); MONOCYTES % (AUTO) 8.9 % (3.0-13.0); NEUTROPHILS % (AUTO) 61.8 % (40.0-77.0); PLATELET COUNT (AUTO) 216 K/uL (130-400); RED BLOOD CELL COUNT(AUTO) 4.75 MIL/uL (4.50-6.20); RED CELL DISTRIBUTION WIDTH 12.4 % (11.0-15.5); WHITE BLOOD COUNT (AUTO) 5.4 K/uL (4.8-10.8)
[2022-07-21 20:18] LABS: CREATININE 0.7 mg/dL (0.5-1.5); POTASSIUM 3.6 mmol/L (3.5-5.1)
[2022-07-21 20:25] LABS: ALBUMIN 4.1 g/dL (3.5-5.0); TOTAL PROTEIN, SERUM 8.2 g/dL (6.0-8.3)
[2022-07-21 20:40] LABS: APPEARANCE,URINE CLEAR (CLEAR); BILIRUBIN,URINE NEGATIVE (NEGATIVE); COLOR,URINE YELLOW (YELLOW); GLUCOSE, URINE (UA) NEGATIVE (NEGATIVE); KETONES,URINE 10 mg/dL (NEGATIVE); LEUKOCYTE ESTERASE ,URINE NEGATIVE Leu/uL (NEGATIVE); NITRATE,URINE NEGATIVE (NEGATIVE); PROTEIN,URINE 30 mg/dL (NEGATIVE)
[2022-07-21 20:45] LABS: MUCUS,URINE FEW LPF (None Seen)
[2022-07-21 20:48] LABS: AMPHET/METH SCREEN,URINE NEGATIVE (NEGATIVE); BARBITURATE SCREEN, URINE NEGATIVE (NEGATIVE); BENZODIAZEPINES SCREEN,URINE NEGATIVE (NEGATIVE); CANNABINOID SCREEN,URINE NEGATIVE (NEGATIVE); COCAINE SCREEN,URINE NEGATIVE (NEGATIVE); OPIATE SCREEN,URINE NEGATIVE (NEGATIVE); PHENCYCLIDINE SCREEN,URINE NEGATIVE (NEGATIVE)
[2022-07-21] MEDS ORDERED: KETOROLAC 30MG VIAL (30MG/ML) IVP ONE (21:00)
[2022-07-21] MEDS ORDERED: IOHEXOL 350 MG/ML 100ML INFUS..BTL IV ONE (21:34)
[2022-07-21] MEDS ORDERED: NITROGLYCERIN 0.4 MG SL TAB SL PRN (23:00)
[2022-07-21] MEDS ORDERED: ONDANSETRON 4MG INJ IV PRN (23:00)
[2022-07-21] MEDS ORDERED: ACETAMINOPHEN 325 MG TAB PO PRN (23:00)
[2022-07-21] MEDS ORDERED: 0.9%NACL 1000ML 1,000 ML IV SCH (23:00)
[2022-07-22 01:00] VITALS: BP 140/108
[2022-07-22] MEDS ORDERED: HYDROXYZINE 25 MG TABLET PO ONE (02:30)
[2022-07-22 03:32] VITALS: BP 139/80
[2022-07-22 05:35] LABS: BASOPHILS % (AUTO) 0.7 % (0.0-5.0); EOSINOPHILS % (AUTO) 3.8 % (0.0-8.0); HEMATOCRIT 42.4 % (42-54); LYMPHOCYTES % (AUTO) 30.3 % (21.0-51.0); MEAN CORPUSCULAR HEMOGLOBIN 32.9 pg (27.0-33.0); MEAN CORPUSCULAR VOLUME 96.8 fL (79-99); PLATELET COUNT (AUTO) 204 K/uL (130-400); RED BLOOD CELL COUNT(AUTO) 4.38 MIL/uL (4.50-6.20); RED CELL DISTRIBUTION WIDTH 12.4 % (11.0-15.5); WHITE BLOOD COUNT (AUTO) 4.4 K/uL (4.8-10.8)
[2022-07-22 05:50] LABS: HEMOGLOBIN A1C 5.2 % (4.0-6.0)
[2022-07-22 05:58] LABS: ALBUMIN 3.3 g/dL (3.5-5.0); CREATININE 0.6 mg/dL (0.5-1.5); POTASSIUM 3.4 mmol/L (3.5-5.1); THYROID STIMULATING HORMONE 1.92 uIU/mL (0.36-3.74); TOTAL PROTEIN, SERUM 6.9 g/dL (6.0-8.3)
[2022-07-22 08:00] VITALS: BP 141/94
[2022-07-22] MEDS: FAMOTIDINE 20MG TAB PO SCH ×2 (08:32→20:59)
[2022-07-22] MEDS: ASPIRIN 81 MG EC TAB PO SCH (08:32)
[2022-07-22] MEDS: CLOPIDOGREL 75MG TAB PO SCH (08:32)
[2022-07-22] MEDS: ENOXAPARIN SODIUM 40 MG/0.4 ML SYRINGE SQ SCH (08:33)
[2022-07-22] MEDS: ACETAMINOPHEN 325 MG TAB PO PRN ×2 (08:33→17:27)
[2022-07-22] MEDS ORDERED: HYDRALAZINE 20MG/ML VIAL IV PRN (09:30)
[2022-07-22] MEDS ORDERED: POTASSIUM CHLORIDE 20MEQ/100ML 100 ML IV PRN (09:30)
[2022-07-22] MEDS ORDERED: HYDROXYZINE 25 MG TABLET PO PRN (09:30)
[2022-07-22 11:47] VITALS: BP 135/93
[2022-07-22] MEDS: POTASSIUM CHLORIDE 10% ELIXIR 20 MEQ/15 ML UDCUP PO PRN ×2 (15:21→17:21)
[2022-07-22] MEDS ORDERED: KCL 20 MEQ ERTAB PO PRN (15:30)
[2022-07-22 16:00] VITALS: BP 147/112
[2022-07-22] MEDS: LORAZEPAM 2 MG/ML 1 ML VIAL IVP PRN (17:20)
[2022-07-22 20:00] VITALS: BP 150/109
[2022-07-22] MEDS ORDERED: KETOROLAC 15MG/ML VIAL (15MG/ML) IV PRN (20:00)
[2022-07-22] MEDS ORDERED: NACL NASAL SPRAY 120 SPRAY/BOTTLE NS PRN (20:00)
[2022-07-22] MEDS: METOPROLOL TARTRATE 50 MG TAB PO SCH (20:59)
[2022-07-22] MEDS: LISINOPRIL 20 MG TABLET PO SCH (20:59)
[2022-07-22] MEDS ORDERED: ATORVASTATIN 40 MG TABLET PO SCH (21:00)
[2022-07-23] VITALS: BP 132/85
[2022-07-23] MEDS: LORAZEPAM 2 MG/ML 1 ML VIAL IVP PRN (03:55)
[2022-07-23 04:00] VITALS: BP 138/95
[2022-07-23 05:04] LABS: BASOPHILS % (AUTO) 0.6 % (0.0-5.0); EOSINOPHILS % (AUTO) 4.3 % (0.0-8.0); HEMATOCRIT 41.5 % (42-54); LYMPHOCYTES % (AUTO) 30.3 % (21.0-51.0); MEAN CORPUSCULAR HEMOGLOBIN 33.4 pg (27.0-33.0); MEAN CORPUSCULAR HGB CONC 34.2 g/dL (32.0-36.0); MEAN CORPUSCULAR VOLUME 97.6 fL (79-99); MONOCYTES % (AUTO) 16.2 % (3.0-13.0); NEUTROPHILS % (AUTO) 48.3 % (40.0-77.0); PLATELET COUNT (AUTO) 180 K/uL (130-400); RED BLOOD CELL COUNT(AUTO) 4.25 MIL/uL (4.50-6.20); RED CELL DISTRIBUTION WIDTH 12.5 % (11.0-15.5); WHITE BLOOD COUNT (AUTO) 3.5 K/uL (4.8-10.8)
[2022-07-23 05:25] LABS: ALBUMIN 3.2 g/dL (3.5-5.0); CREATININE 0.7 mg/dL (0.5-1.5); POTASSIUM 3.6 mmol/L (3.5-5.1); TOTAL PROTEIN, SERUM 6.8 g/dL (6.0-8.3)
[2022-07-23 08:00] VITALS: BP 142/98
[2022-07-23] MEDS ORDERED: ATOR40TA69 PO (08:50)
[2022-07-23] MEDS ORDERED: CLOP-31 PO (08:50)
[2022-07-23] MEDS ORDERED: LISI20TA24 PO (08:50)
[2022-07-23] MEDS ORDERED: METO50TA18 PO (08:50)
[2022-07-23] MEDS ORDERED: HYDR-3421 PO (08:50)
[2022-07-23] MEDS: FAMOTIDINE 20MG TAB PO SCH (09:07)
[2022-07-23] MEDS: LISINOPRIL 20 MG TABLET PO SCH (09:07)
[2022-07-23] MEDS: CLOPIDOGREL 75MG TAB PO SCH (09:07)
[2022-07-23] MEDS: ASPIRIN 81 MG EC TAB PO SCH (09:07)
[2022-07-23] MEDS: METOPROLOL TARTRATE 50 MG TAB PO SCH (09:07)
[2022-07-23] MEDS: ENOXAPARIN SODIUM 40 MG/0.4 ML SYRINGE SQ SCH (09:08)
== END 2022-07-23 10:00 | disposition home or self-care (01) | DRG 66 ==
LOC: EDH 19:26 → EDHIP 19:27 → 4DH 07-22 01:00
PROVIDERS: ADMIT Internal Medicine; ATTEND Internal Medicine
DX: I63.9 Cerebral infarction, unspecified (principal); E78.2 Mixed hyperlipidemia; G43.109 Migraine with aura, not intractable, without status migrainosus; I10 Essential (primary) hypertension; I25.10 Atherosclerotic heart disease of native coronary artery without angina pectoris; E66.09 Other obesity due to excess calories; E78.00 Pure hypercholesterolemia, unspecified; F41.9 Anxiety disorder, unspecified; Z95.5 Presence of coronary angioplasty implant and graft; Z83.3 Family history of diabetes mellitus; Z82.49 Family history of ischemic heart disease and other diseases of the circulatory system; Z82.3 Family history of stroke; Z68.33 Body mass index [BMI] 33.0-33.9, adult
CPT/HCPCS: 36415; 70450; 70496; 70498; 70551; 80053; 80061; 80305; 81001; 83036; 83690; 84443; 84484; 85025; 92522; 92610; 93005; 97039; G0378; J1650; J1885; J2060; Q9967

== ENCOUNTER 2022-08-16 20:49 | Emergency (ER) | payer OTHER ==
[~2022-08-16 20:49] MED LIST changes: +ATOR40TA69 PO; -CEFU500T67 PO; +CLOP-31 PO; -DICY20TA2 PO; -FAMO-136 PO; -IBUP-1493 PO; -METO100T14 PO; -METO50 PO; -OMEP40CA21 PO; -ONDA4TAB10 PO; -PANT40TA54 PO
[2022-08-16 21:08] LABS: BASOPHILS % (AUTO) 0.5 % (0.0-5.0); EOSINOPHILS % (AUTO) 1.4 % (0.0-8.0); HEMATOCRIT 45.5 % (42-54); LYMPHOCYTES % (AUTO) 28.4 % (21.0-51.0); MEAN CORPUSCULAR HEMOGLOBIN 33.6 pg (27.0-33.0); MEAN CORPUSCULAR HGB CONC 33.6 g/dL (32.0-36.0); MEAN CORPUSCULAR VOLUME 99.8 fL (79-99); NEUTROPHILS % (AUTO) 46.5 % (40.0-77.0); PLATELET COUNT (AUTO) 114 K/uL (130-400); RED BLOOD CELL COUNT(AUTO) 4.56 MIL/uL (4.50-6.20); RED CELL DISTRIBUTION WIDTH 13.4 % (11.0-15.5); WHITE BLOOD COUNT (AUTO) 4.4 K/uL (4.8-10.8)
[2022-08-16] MEDS ORDERED: IOHEXOL-350 75 ML VIAL IV ONE (21:13)
[2022-08-16 21:19] LABS: INR 0.96 (0.85-1.15); PROTHROMBIN TIME 10.5 SEC (9.6-11.6)
[2022-08-16 21:20] LABS: PARTIAL THROMBOPLASTIN TIME 22.5 SEC (26.3-35.5)
[2022-08-16 21:23] LABS: ALBUMIN 3.9 g/dL (3.5-5.0); CREATININE 0.9 mg/dL (0.5-1.5); POTASSIUM 3.9 mmol/L (3.5-5.1)
[2022-08-16 21:38] LABS: APPEARANCE,URINE CLEAR (CLEAR); BILIRUBIN,URINE NEGATIVE (NEGATIVE); COLOR,URINE LIGHT-YELLOW (YELLOW); GLUCOSE, URINE (UA) NEGATIVE (NEGATIVE); KETONES,URINE NEGATIVE (NEGATIVE); LEUKOCYTE ESTERASE ,URINE NEGATIVE Leu/uL (NEGATIVE); NITRATE,URINE NEGATIVE (NEGATIVE); OCCULT BLOOD,URINE NEGATIVE (NEGATIVE); PH,URINE 5.5 (5.0-8.0); PROTEIN,URINE NEGATIVE (NEGATIVE); UROBILINOGEN,URINE 0.2 mg/dL (0.2-1.0)
[2022-08-16 21:39] VITALS: BP 160/107
[2022-08-16 21:45] LABS: AMPHET/METH SCREEN,URINE NEGATIVE (NEGATIVE); BARBITURATE SCREEN, URINE NEGATIVE (NEGATIVE); BENZODIAZEPINES SCREEN,URINE POSITIVE (NEGATIVE); CANNABINOID SCREEN,URINE NEGATIVE (NEGATIVE); COCAINE SCREEN,URINE NEGATIVE (NEGATIVE); OPIATE SCREEN,URINE NEGATIVE (NEGATIVE); PHENCYCLIDINE SCREEN,URINE NEGATIVE (NEGATIVE)
[2022-08-16 21:46] LABS: B-TYPE NATRIURETIC PEPTIDE 7 pg/mL (0-100)
[2022-08-16] MEDS ORDERED: ALPRAZOLAM 1 MG TAB PO ONE (22:00)
[2022-08-16 23:34] LABS: SALICYLATE < 2.8 mg/dL (2.8-20.0)
[2022-08-16 23:35] LABS: ACETAMINOPHEN < 1 mcg/mL (10-29)
== END 2022-08-17 00:01 | disposition home or self-care (01) ==
LOC: EDH 20:49
DX: I10 Essential (primary) hypertension (principal); R20.0 Anesthesia of skin; R79.89 Other specified abnormal findings of blood chemistry; E78.00 Pure hypercholesterolemia, unspecified; F41.9 Anxiety disorder, unspecified; G51.0 Bell's palsy; Z88.5 Allergy status to narcotic agent; Z98.890 Other specified postprocedural states; Z79.899 Other long term (current) drug therapy
CPT/HCPCS: 99285; 70496; 71045; 80061; 82550; 84484; 80053; 83880; 80305; 85025; 85378; 85610; 85730; 82948; 36415; 70498; 70450; 81003; G0481; Q9967

== ENCOUNTER → 2023-06-22 | Emergency (ER) | payer OTHER ==
[~2023-06-22] VITALS: Ht 172.7 cm; Wt 99.8 kg
[~2023-06-22] MED LIST changes: +0.9%NACL 1000ML 1,000 ML IV ONE; +KETOROLAC 30MG VIAL (30MG/ML) IVP ONE; +ONDANSETRON 4MG INJ IVP ONE
[2023-06-22 11:11] VITALS: BP 150/92; PULSE 114; RESP 18
[2023-06-22 11:57] LABS: BASOPHILS # (AUTO) 0.04 K/uL (0.00-0.20); BASOPHILS % (AUTO) 0.5 % (0.0-5.0); EOSINOPHILS # (AUTO) 0.09 K/uL (0.00-0.70); EOSINOPHILS % (AUTO) 1.2 % (0.0-8.0); HEMATOCRIT 44.8 % (42-54); IMMATURE GRANULOCYTE ABSOLUTE 0.02 K/uL (0-1); LYMPHOCYTES % (AUTO) 13.5 % (21.0-51.0); MEAN CORPUSCULAR HEMOGLOBIN 33.6 pg (27.0-33.0); MEAN CORPUSCULAR HGB CONC 35.5 g/dL (32.0-36.0); MEAN CORPUSCULAR VOLUME 94.7 fL (79-99); MONOCYTES # (AUTO) 0.6 K/uL (0.1-1.0); MONOCYTES % (AUTO) 8.2 % (3.0-13.0); NEUTROPHILS # (AUTO) 5.6 K/uL (1.8-7.7); NEUTROPHILS % (AUTO) 76.3 % (40.0-77.0); PLATELET COUNT (AUTO) 264 K/uL (130-400); RED BLOOD CELL COUNT(AUTO) 4.73 MIL/uL (4.50-6.20); RED CELL DISTRIBUTION WIDTH 12.3 % (11.0-15.5); WHITE BLOOD COUNT (AUTO) 7.3 K/uL (4.8-10.8)
[2023-06-22 12:19] LABS: CREATININE 0.7 mg/dL (0.5-1.3); POTASSIUM 3.6 mmol/L (3.5-5.1)
[2023-06-22 12:23] LABS: BILIRUBIN,TOTAL 1.1 mg/dL (0.2-1.0); TOTAL PROTEIN, SERUM 8.2 g/dL (6.0-8.3)
[2023-06-22 12:41] LABS: APPEARANCE,URINE CLEAR (CLEAR); BILIRUBIN,URINE NEGATIVE (NEGATIVE); COLOR,URINE LIGHT-YELLOW (YELLOW); GLUCOSE, URINE (UA) NEGATIVE (NEGATIVE); KETONES,URINE 60 mg/dL (NEGATIVE); LEUKOCYTE ESTERASE ,URINE NEGATIVE Leu/uL (NEGATIVE); NITRATE,URINE NEGATIVE (NEGATIVE); PROTEIN,URINE 20 mg/dL (NEGATIVE); UROBILINOGEN,URINE 0.2 mg/dL (0.2-1.0)
[2023-06-22 12:44] LABS: ADD UA MICROSCOPIC YES
[2023-06-22 12:54] LABS: MUCUS,URINE RARE LPF (None Seen); RBC,URINE 0-1 /HPF (0-1); SQUAMOUS EPITHELIAL CELL,UR RARE /HPF (0-2); WBC,URINE 0-1 /HPF (0-1)
== END ==
LOC: EDH 11:06
DX: R10.10 Upper abdominal pain, unspecified (principal); R11.2 Nausea with vomiting, unspecified; I10 Essential (primary) hypertension; E78.00 Pure hypercholesterolemia, unspecified; F41.9 Anxiety disorder, unspecified; Z79.899 Other long term (current) drug therapy; Z98.890 Other specified postprocedural states; Z88.6 Allergy status to analgesic agent
CPT/HCPCS: 36415; 80053; 81001; 83690; 85025